=== PATIENT | female | born 1980 | race Two or more races ===

== ENCOUNTER → 2024-02-28 13:04 | Outpatient (REF) | payer OTHER, SELFPAY | LOC: WDC 13:04 | PROVIDERS: ATTENDING PHYSICIAN Student in an Organized Health Care Education/Training Program | DX: Z12.31 Encounter for screening mammogram for malignant neoplasm of breast (principal) | CPT/HCPCS: 77063; 77067 ==

== ENCOUNTER → 2025-04-19 18:08 | Outpatient (REF) | payer OTHER, SELFPAY | LOC: WDC 18:08 | PROVIDERS: ATTENDING PHYSICIAN Student in an Organized Health Care Education/Training Program | DX: Z12.31 Encounter for screening mammogram for malignant neoplasm of breast (principal) | CPT/HCPCS: 77063; 77067 ==